=== PATIENT | male | born 1975 | race African-American/Black ===

== ENCOUNTER 2022-08-12 10:42 | Emergency (ER) | payer OTHER ==
[~2022-08-12] VITALS: Ht 170.2 cm; Wt 90.7 kg
[2022-08-12 10:50] VITALS: BP 138/90
[2022-08-12] MEDS ORDERED: cefTRIAXone SOD 1,000 MG VL IM ONE (11:15)
[2022-08-12] MEDS ORDERED: CEPH-510 PO (11:38)
== END 2022-08-12 11:49 | disposition home or self-care (01) ==
LOC: ER 10:44
DX: S61.431A Puncture wound without foreign body of right hand, initial encounter (principal); L08.9 Local infection of the skin and subcutaneous tissue, unspecified; Z79.2 Long term (current) use of antibiotics; W26.8XXA Contact with other sharp object(s), not elsewhere classified, initial encounter; Y93.89 Activity, other specified; Y92.89 Other specified places as the place of occurrence of the external cause; Y99.8 Other external cause status
CPT/HCPCS: 73120; 96372; 99283; J0696

== ENCOUNTER 2023-05-16 21:16 | Emergency (ER) | payer OTHER ==
[~2023-05-16] VITALS: Ht 180.3 cm; Wt 87.3 kg
[~2023-05-16 21:16] MED LIST: CEPH-510 PO
[2023-05-16 22:04] VITALS: BP 129/76; PULSE 98; RESP 17; TEMP 99.2
[2023-05-16 22:51] VITALS: O2SAT 98
[2023-05-16] MEDS ORDERED: CEPH500C PO (22:57)
[2023-05-16] MEDS ORDERED: ACET500T58 PO (22:57)
== END 2023-05-16 23:30 | disposition home or self-care (01) ==
LOC: ER 21:16
DX: S00.01XA Abrasion of scalp, initial encounter (principal); Z85.9 Personal history of malignant neoplasm, unspecified; Z98.890 Other specified postprocedural states; W22.8XXA Striking against or struck by other objects, initial encounter; Y93.89 Activity, other specified; Y92.89 Other specified places as the place of occurrence of the external cause; Y99.8 Other external cause status
CPT/HCPCS: 70450

== ENCOUNTER 2025-06-07 09:55 | Inpatient (IN) | payer OTHER, MEDICAID ==
[~2025-06-07] VITALS: Ht 180.3 cm; Wt 95.5 kg
[~2025-06-07 09:55] MED LIST changes: +ACET500T58 PO; +CEPH500C PO
--- NOTE | 2025-06-07 10:09 | ECG ---
[facility] Test Date: 2025-06-07 Test Time: 10:07:36 Pat Name: NATHALIE CAGLE Department: ED Room: Gender: Manager Convention: WILLIAM : 1975 Requested By: LASHANDA ACEVES Order Number: [id number] Reading MD: Rafael Tran Measurements Intervals [place] Rate: 86 P: 47 UT: 168 QRS: 35 QRSD: 87 T: 25 QT: 343 QTc: 411 Interpretive Statements Sinus rhythm Electronically Signed On 06-07-2025 10:33:39 PST by Rafael Tran Please click the below link to view image of tracing.
--- NOTE | 2025-06-07 10:17 | ED.PDOC ---
HPI (NEURO) HPI Comments 49 y/o M presents with c/c of right arm pain, numbness, and weakness. Patient endorses on symptom beginning with unprovoked and atraumatic onset of pain on 06/04/25. Patient states on pain getting progressively worse since then with additional onset of numbness and weakness over the course of duration. Additional associated symptoms of headache and 1x isolated episode of diarrhea, yesterday He denies any further associated symptoms, such as facial numbness or tingling. 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 Chief Complaint: Right Sided Weakness Time Seen by MD: 10:00 Primary Care Provider: [facility] Reviewed Notes: Nurses Notes, Medications, Allergies Information Source: Patient Mode of Arrival: Ambulatory Severity: Moderate Dizziness/Weakness Severity: Unable to do activities Headache Severity: Mild Timing: Days Duration: Since onset Prehospital treatment: Pain Meds Headache Quality: Other Headache Location: Generalized Weakness Location: (R) Arm Numbness Location: (R) Arm Onset: At rest Circumstances: Spontaneous Symptoms: Other (see HPI) History of: Other (see PMHx) Associated Signs and Symptoms: Other (see HPI) Past Medical History PAST MEDICAL HISTORY: Cancer (Giant cell tumor on pelvic bone) Past Medical History (Other): unspecified blood disorder Surgical History (Other): left wrist and right knee surgery Family History Family History: Family hx of DM (maternal), Family hx of Cancer (bone - paterna), Family hx of heart sydnie (paternal and maternal ) Social History Smoker: Non-Smoker Alcohol: Denies ETOH Use Drugs: Denies Drug Use Lives In: Home Constitutional: denies: chills, diaphoresis, fatigue, fever, malaise, sweats, weakness, others EENTM: denies: blurred vision, double vision, ear bleeding, ear discharge, ear drainage, ear pain, ear ringing, eye pain, eye redness, hearing loss, mouth pain, mouth swelling, nasal discharge, nose bleeding, nose congestion, nose pain, photophobia, tearing, throat pain, throat swelling, voice changes, others Respiratory: denies: cough, hemoptysis, orthopnea, SOB at rest, shortness of breath, SOB with excertion, stridor, wheezing, others Cardiovascular: denies: chest pain, dizzy spells, diaphoresis, Dyspnea on exertion, edema, irregular heart beat, left arm pain, lightheadedness, palpitations, PND, syncope, others Gastrointestinal: denies: abdomen distended, abdominal pain, blood streaked bowels, constipated, diarrhea, dysphagia, difficulty swallowing, hematemesis, melena, nausea, poor appetite, poor fluid intake, rectal bleeding, rectal pain, vomiting, others Genitourinary: denies: burning, dysuria, flank pain, frequency, hematuria, incontinence, penile discharge, penile sore, pain, testicle pain, testicle swelling, urgency, others Neurological: reports: headache, others (right arm pain, numbness, and weakness ); denies: dizziness, fainting, left sided numbness, left sided weakness, numbness, paresthesia, pre-existing deficit, right sided numbness, right sided weakness, seizure, speech problems, tingling, tremors, weakness Musculoskeletal: denies: back pain, gout, joint pain, joint swelling, muscle pain, muscle stiffness, neck pain, others Integumetry: denies: bruises, change in color, change in hair/nails, dryness, laceration, lesions, lumps, rash, wounds, others Allergic/Immunocompromised: denies: Difficulty Healing, Frequent Infections, Hives, Itching, others Hematologic/Lymphatic: denies: anemia, blood clots, easy bleeding, easy bruising, swollen glands, others Endocrine: denies: excessive hunger, excessive sweating, excessive thirst, excessive urination, flushing, intolerance to cold, intolerance to heat, unexplained weight gain, unexplained weight loss, others Psychiatric: denies: anxiety, bipolar disorder, depression, hopeless, panic disorder, schizophrenia, sleepless, suicidal, others All Other Systems: Reviewed and Negative Physical Exam General Appearance: Moderate Distress HEENT: Normal ENT Inspection, Pharynx Normal, TMs Normal Neck: Full Range of Motion, Non-Tender, Normal, Normal Inspection Respiratory: Chest Non-Tender, Lungs Clear, No Accessory Muscle Use, No Respiratory Distress, Normal Breath Sounds Cardiovascular: No Edema, No JVD, No Murmur, No Gallop, Normal Peripheral Pulses, Regular Rate/Rhythm Breast Exam: Deferred Gastrointestinal: No Organomegaly, Non Tender, No Pulsatile Mass, Normal Bowel Sounds, Soft Genitalia: Deferred Pelvic: Deferred Rectal: Deferred Extremities: No calf tenderness, Normal capillary refill, Normal inspection, Normal range of motion, Non-tender, No pedal edema Musculoskeletal : Apperance: Normal Neurologic: Alert, training systems officer II-XII nml as Tested, No Motor Deficits, Normal Affect, Normal Mood, No Sensory Deficits Cerebellar Function: Normal Reflexes: Normal Skin: Dry, Normal Color, Warm Lymphatic: No Adenopathy EKG EKG : Pulse Rate (adult): 86 [place]: Normal Cardiac Rhythm: NSR Block: None Hypertrophy: None ST: Normal Was a procedure done? Was a procedure done?: No Differential Diagnosis (SZ) Seizure: N/A General Weakness: Anemia, CVA, Dehydration, Dysrhythmia, Electrolyte imbalance, Hypoglycemia, Hypotension, Hypovolemia, Myocardial infarction, Pulmonary embolus, TIA Headache: Cluster, Migraine, CVA, Epidural Hemorrhage, Intracerebral Hemorrhage, Subarachnoid Hemorrhage, Subdural Hemorrhage X-Ray, Labs, Meds, VS Vital Signs Date Time Temp Pulse Resp B/P (MAP) Pulse Ox O2 Delivery O2 Flow Rate FiO2 06/07/25 11:29 98.9 84 18 125/91 (102) 98 98.9 06/07/25 11:29 84 18 98 Room Air 06/07/25 10:17 86 06/07/25 10:07 86 06/07/25 09:58 97.5 104 20 134/92 98 97.5 Lab Test 06/07/25 11:27 06/07/25 11:15 06/07/25 10:14 Range/Units Urine Color Yellow Yellow Urine Clarity Clear Clear Urine pH 6.0 5.0-9.0 Urine Specific [place] 1.028 1.001-1.035 Urine Protein Negative Negative Urine Ketones Negative Negative Urine Blood Negative Negative /uL Urine Nitrite Negative Negative Urine Bilirubin Negative Negative Urine Urobilinogen Normal Negative mg/dL Urine Leukocyte Esterase Negative Negative /uL Urine RBC 1 0 - 3 /hpf Urine Microscopic WBC < 1 0-3 /HPF Urine Squamous Epithelial Cells None seen <5 /hpf Urine Bacteria None seen None Seen /hpf Urine Glucose Normal Normal mg/dL Troponin I High Sensitivity Pending < 3 L </=54 ng/L White Blood Count 3.9 L 4.4-10.8 10^3/uL Red Blood Count 5.75 4.5-5.90 10^6/uL Hemoglobin 17.6 H 13.5-17.5 g/dL Hematocrit 50.8 41.0-53.0 % Mean Corpuscular Volume 88.4 80.0-100.0 fL Mean Corpuscular Hemoglobin 30.6 28.0-32.0 pg Mean Corpuscular Hemoglobin Concent 34.6 32.0-36.0 g/dL Red Cell Distribution Width 14.2 11.8-14.3 % Platelet Count 251 140-450 10^3/uL Mean Platelet Volume 7.0 6.9-10.8 fL Neutrophils (%) (Auto) 50.6 37.0-80.0 % Lymphocytes (%) (Auto) 32.3 10.0-50.0 % Monocytes (%) (Auto) 12.6 H 0.0-12.0 % Eosinophils (%) (Auto) 3.7 0.0-7.0 % Basophils (%) (Auto) 0.8 0.0-2.0 % Neutrophils # (Auto) 2.0 1.6-8.6 10 ^3/uL Lymphocytes # (Auto) 1.2 0.4-5.4 10 ^3/uL Monocytes # (Auto) 0.5 0-1.3 10 ^3/uL Eosinophils # (Auto) 0.1 0-0.8 10 ^3/uL Basophils # (Auto) 0 0-0.2 10 ^3/uL Nucleated Red Blood Cells 0.2 % Sodium Level 141 136-145 mmol/L Potassium Level 3.9 3.5-5.1 mmol/L Chloride Level 105 98-107 mmol/L Carbon Dioxide Level 28 20-31 mmol/L Anion Gap 8 5-15 Blood Urea Nitrogen 15 9-23 mg/dL Creatinine 1.31 H 0.700-1.30 mg/dL Glomerular Filtration Rate Calc 68 >90 mL/min BUN/Creatinine Ratio 11.5 10.0-20.0 Serum Glucose 94 74-106 mg/dL Calcium Level 9.5 8.7-10.4 mg/dL PROCEDURE(s): HWOCT - HEAD WITHOUT CONTRAST IMPRESSION: No acute intracranial abnormality. PROCEDURE(s): CXR2 - CHEST TWO VIEWS ROUTINE IMPRESSION: No acute cardiopulmonary disease. Time of 1ST Reevaluation: 10:45 Reevaluation 1ST: Unchanged Patient Education/Counseling: Diagnosis, Treatment, Prognosis Family Education/Counseling: No Family Present Departure 1 Departure Time of Disposition: 12:01 Impression: Primary Impression: Right-sided chest pain Additional Impression: Generalized weakness Disposition: 09 ADMITTED INPATIENT Admit to: Tele Condition: Fair Critical Care Note Critical Care Time?: Yes (45 min-critical care time only) Stability Stability form required: Yes Unstable for transfer: Telemetry monitoring (Telemetry monitoring required), ED Physician Assesment (Clinical assesment) Heart Score Heart Score: Heart Score Response (Comments) Value History N/A 0 EKG N/A 0 Age N/A 0 Risk Factors N/A 0 Troponin N/A 0 Total 0 I personally scribed for LASHANDA ACEVES MD ([email or web address]) on 06/07/25 at 10:17. Electronically submitted by Gal Randle ([email or web address]). I personally scribed for LASHANDA ACEVES MD ([email or web address]) on 06/07/25 at 10:18. Electronically submitted by Gal Randle ([email or web address]). I personally scribed for LASHANDA ACEVES MD ([email or web address]) on 06/07/25 at 11:58. Electronically submitted by Gal Randle ([email or web address]). LASHANDA ACEVES MD Jun 07, 2025 10:17
[2025-06-07 10:44] LABS: Mean Corpuscular Volume 88.4 fL (80.0-100.0)
[2025-06-07 10:48] LABS: Hematocrit 50.8 % (41.0-53.0); Hemoglobin 17.6 g/dL (13.5-17.5); Mean Corpuscular Hemoglobin 30.6 pg (28.0-32.0); Nucleated Red Blood Cells % 0.2 %
--- NOTE | 2025-06-07 10:48 | DVH ---
XY CHEST TWO VIEWS ROUTINE CLINICAL HISTORY: RIGHT ARM PAIN COMPARISON: None TECHNIQUE: Frontal and lateral view of the chest was obtained FINDINGS: Lines and Tubes: None Lungs: No focal consolidation. Pleura: No effusion. No pneumothorax. Cardiomediastinal contours: Unremarkable Bones: No acute osseous abnormality. IMPRESSION: No acute cardiopulmonary disease.
--- NOTE | 2025-06-07 10:51 | DVH ---
EXAM: CT HEAD WITHOUT CONTRAST INDICATION: still TECHNIQUE: CT of the head without intravenous contrast. Radiation Dose Information: CT Dose: CTDI volume is 61.94 mGy. Dose-length product is 1220.5 mGy*cm The dose indicators for CT are the volume Computed Tomography (CT) Dose Index (CTDIvol) and the Dose Length Product (DLP), and are measured in units of mGy and mGy-cm, respectively. These indicators are not patient dose, but values generated from the CT scanner acquisition factors. The report includes radiation exposure data for exposures received during this examination. COMPARISON: CT HEAD WITHOUT CONTRAST on DOS: 05/16/23 FINDINGS: There is no evidence of acute intracranial hemorrhage, extra-axial collection, mass effect, midline shift, herniation or hydrocephalus. The ventricles, sulci and cisterns are age appropriate. The tolentino-white differentiation is intact. Patchy periventricular and subcortical white matter hypoattenuation is nonspecific but may be related to small vessel ischemic disease. The visualized paranasal sinuses and mastoid air cells are clear. The surrounding soft tissues and osseous structures are unremarkable. IMPRESSION: No acute intracranial abnormality.
[2025-06-07 10:54] LABS: Chloride 105 mmol/L (98-107); Potassium 3.9 mmol/L (3.5-5.1); Sodium 141 mmol/L (136-145)
[2025-06-07 10:55] LABS: Anion Gap 8 (5-15); Carbon Dioxide 28 mmol/L (20-31)
[2025-06-07 10:56] LABS: Calcium 9.5 mg/dL (8.7-10.4)
[2025-06-07 11:00] LABS: Glucose 94 mg/dL (74-106)
[2025-06-07 11:01] LABS: BUN/Creatinine Ratio 11.5 (10.0-20.0); Blood Urea Nitrogen 15 mg/dL (9-23)
[2025-06-07 11:51] LABS: Urine Protein, UAD Negative (Negative)
--- NOTE | 2025-06-07 12:31 | DVHHPRES ---
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 presented to the ED with a chief complaint of severe right upper arm pain for the last 3 days. The patient reports the pain started on Tuesday, gradually progressive to severe 10/10 on intensity which was not relieved on taking baclofen, gabapentin, Nucynta, heart radiation down to follow up of the head up to his shoulder, tenderness on pressure around the biceps and triceps, denied any history of trauma or lifting heavy weights for which to come to the hospital for further evaluation. He also complaint of mild headache on the right side following which in the ED, CT head without contrast was done which did not show any acute intracranial abnormality. The pa tient denied any fever, chills, rash or any overt swelling around the pain area in the last 2 days. Medical history: As per HPI Surgical history: Denies Social history: Denies any smoking, alcohol, drug use Family history: Bone cancer and CHF in father, CHF and diabetes and mother Home medications: Denosumab once monthly, gabapentin, baclofen, Nucynta for pain Review of Systems Review of Systems Patient complaint of extreme pain 9-10/10 on intensity in the middle of right upper arm with intermittent radiation down to the head Reports headache has improved Denies shortness of breath, chest pain Allergies: Coded Allergies: NO KNOWN ALLERGIES (Unverified , 05/16/23) Medications Current Medications Medications Dose Ordered Sig/Sanya Route Start Time Stop Time Status Last Admin Dose Admin Morphine Sulfate 2 mg Q4HPRN PRN IV 06/07/25 12:15 UNV Ondansetron HCl 4 mg Q6HPRN PRN IV 06/07/25 12:15 UNV Exam Vital Signs Vital Signs Date Time Temp Pulse Resp B/P (MAP) Pulse Ox O2 Delivery O2 Flow Rate FiO2 06/07/25 11:29 98.9 84 18 125/91 (102) 98 98.9 06/07/25 11:29 Room Air Exam Skin - Patients skin is warm and dry, no rashes, no swelling around the right upper arm HEENT - normocephalic, atraumatic, moist mucous membranes, no icterus, no pallor, bilateral pupils equal and reactive Neck - full ROM, no LAD, no JVD Pulmonary - B/L clear with sounds, no wheezes or rales cardiovascular - regular S1,S2 heard, no added sounds, no murmurs heard. peripheral pulses normal radial 2+, pedal 2+. GI - soft, nontender abdomen. Bowel sounds normoactive Neurological - Patient is A/O X 4 . Right upper extremity strength 4/5, left upper extremity strength 5/5, bilateral lower extremity strength 5/5, no sensory abnormalities bilaterally in the upper extremities or the lower extremities, no visual abnormalities Labs/Xrays Labs Test 06/07/25 11:27 06/07/25 11:15 06/07/25 10:14 Range/Units Urine Color Yellow Yellow Urine Clarity Clear Clear Urine pH 6.0 5.0-9.0 Urine Specific [place] 1.028 1.001-1.035 Urine Protein Negative Negative Urine Ketones Negative Negative Urine Blood Negative Negative /uL Urine Nitrite Negative Negative Urine Bilirubin Negative Negative Urine Urobilinogen Normal Negative mg/dL Urine Leukocyte Esterase Negative Negative /uL Urine RBC 1 0 - 3 /hpf Urine Microscopic WBC < 1 0-3 /HPF Urine Squamous Epithelial Cells None seen <5 /hpf Urine Bacteria None seen None Seen /hpf Urine Glucose Normal Normal mg/dL Troponin I High Sensitivity < 3 L </=54 ng/L White Blood Count 3.9 L 4.4-10.8 10^3/uL Red Blood Count 5.75 4.5-5.90 10^6/uL Hemoglobin 17.6 H 13.5-17.5 g/dL Hematocrit 50.8 41.0-53.0 % Mean Corpuscular Volume 88.4 80.0-100.0 fL Mean Corpuscular Hemoglobin 30.6 28.0-32.0 pg Mean Corpuscular Hemoglobin Concent 34.6 32.0-36.0 g/dL Red Cell Distribution Width 14.2 11.8-14.3 % Platelet Count 251 140-450 10^3/uL Mean Platelet Volume 7.0 6.9-10.8 fL Neutrophils (%) (Auto) 50.6 37.0-80.0 % Lymphocytes (%) (Auto) 32.3 10.0-50.0 % Monocytes (%) (Auto) 12.6 H 0.0-12.0 % Eosinophils (%) (Auto) 3.7 0.0-7.0 % Basophils (%) (Auto) 0.8 0.0-2.0 % Neutrophils # (Auto) 2.0 1.6-8.6 10 ^3/uL Lymphocytes # (Auto) 1.2 0.4-5.4 10 ^3/uL Monocytes # (Auto) 0.5 0-1.3 10 ^3/uL Eosinophils # (Auto) 0.1 0-0.8 10 ^3/uL Basophils # (Auto) 0 0-0.2 10 ^3/uL Nucleated Red Blood Cells 0.2 % Sodium Level 141 136-145 mmol/L Potassium Level 3.9 3.5-5.1 mmol/L Chloride Level 105 98-107 mmol/L Carbon Dioxide Level 28 20-31 mmol/L Anion Gap 8 5-15 Blood Urea Nitrogen 15 9-23 mg/dL Creatinine 1.31 H 0.700-1.30 mg/dL Glomerular Filtration Rate Calc 68 >90 mL/min BUN/Creatinine Ratio 11.5 10.0-20.0 Serum Glucose 94 74-106 mg/dL Calcium Level 9.5 8.7-10.4 mg/dL SEPSIS Sepsis Screen Date sepsis recognized/suspect: Jun 07, 2025 Time Sepsis recognized/suspect: 1000 Recent Procedure: No On Antibiotic Therapy: No Respiratory Rate >20: No Heart Rate >90: Yes Temp<36 C (96.8 F) or >38.3 C: No SBP <90 or MAP <65 mmHG: No New Acute Mental Status Change: No Is the patient on CPAP, BIPAP,: No Physician Orders Chest Two Views Routine (06/07/25 10:06) Heplock Iv (06/07/25 10:06) Electrocardigram (06/07/25 10:06) Head Without Contrast (06/07/25 10:06) Troponin-I Hs (06/07/25 13:06) Electrocardigram (06/07/25 11:06) Electrocardigram (06/07/25 13:06) Admit (06/07/25 12:08) Oxygen By Nasal Cannula (06/07/25 12:08) Stat Ekg For Chest Pain (06/07/25 12:08) Notify Of Changes From Base (06/07/25 12:08) Morphine Sulfate Injection (06/07/25 12:15) Morphine Sulfate Injection (06/07/25 12:15) Sodium Chloride 0.9% (06/07/25 12:15) Ct Right Humerus W Contrast (06/07/25 13:30) Ondansetron Hcl (Zofran) (06/07/25 12:15) Erythrocyte Sedimentation Rate (06/07/25 12:08) Hepatic Panel (06/07/25 12:08) Vital Signs Date Time Temp Pulse Resp B/P (MAP) Pulse Ox O2 Delivery O2 Flow Rate FiO2 06/07/25 11: 98.9 84 18 125/91 (102) 98 98.9 06/07/25 11:29 84 18 98 Room Air 06/07/25 10:17 86 06/07/25 10:07 86 06/07/25 09:58 97.5 104 20 134/92 98 97.5 Laboratory Tests Test 06/07/25 10:14 White Blood Count 3.9 10^3/uL (4.4-10.8) L Assessment/Plan Assessment/Plan Intractable right upper extremity pain ?Metastatic lesion to the bone H/o giant cell tumor JOSE MIGUEL on CKD likely due to VMN - CT with IV contrast - IV pain medications, patient denied relief with the oral medications at home - Zofran for nausea - IV fluids PUD prophylaxis: Protonix DVT prophylaxis: Enoxaparin Goals of care discussed with the patient for over 19 minutes. Full code Time spent: 34 minutes Plan discussed with Dr. Morelos Plan discussed with: Patient My Orders Orders - BEN VÁSQUEZ RESIDENT Procedure Category Date Status Time Admit ADMIT 06/07/25 Transmitted 12:08 Oxygen By Nasal RT 06/07/25 Transmitted Cannula 12:08 Stat Ekg For Chest BREA 06/07/25 In Process Pain 12:08 Notify Of Changes BREA 06/07/25 In Process From Base 12:08 Morphine Sulfate PHA 06/07/25 Logged Injection 12:15 Morphine Sulfate PHA 06/07/25 Logged Injection 12:15 Sodium Chloride 0.9% PHA 06/07/25 Logged 12:15 Ct Right Humerus W CT 06/07/25 Transmitted Contrast 13:30 Ondansetron Hcl PHA 06/07/25 Logged (Zofran) 12:15 Erythrocyte LAB 06/07/25 Logged Sedimentation Rate 12:08 Hepatic Panel LAB 06/07/25 Logged 12:08 Date of Service: Jun 07, 2025 Billing Provider: RONAK MORELOS MD Common Visit Codes: 27716-[id number] INP/OBS CARE (HIGH) Secondary Visit Codes: [id number] CARE PLAN 30 MINUTES BEN VÁSQUEZ RESIDENT Jun 07, 2025 12:31
[2025-06-07 12:55] LABS: Alanine Aminotransferase 38.0 U/L (7-40); Albumin 4.3 g/dL (3.2-4.8); Alkaline Phosphatase 58.0 U/L (46-116); Bilirubin, Direct 0.3 mg/dL (<0.3); Bilirubin, Total 1.2 mg/dL (0.2-1.0); Total Protein 7.0 g/dL (5.7-8.2)
[2025-06-07] MEDS: ONDANSETRON HCL 4 MG/2 ML VIAL IV PRN (12:57)
[2025-06-07] MEDS: MORPHINE SULFATE INJ 2 MG/ml SYRG IV ONE (13:03)
[2025-06-07] MEDS: SODIUM CHLORIDE 0.9% 500 ML IV ONE (13:10)
--- NOTE | 2025-06-07 13:25 | DVH ---
CLINICAL INFORMATION: Pain in right arm. History of giant cell tumor in the pelvis. TECHNIQUE: Axial CT images of the right humerus were obtained after the administration of 80 mL omnipaque 300 IV contrast. Coronal and sagittal reformatted images were obtained, reviewed, and stored. All CT scans at this medical facility are performed using dose modulation techniques as appropriate to a performed exam including the following: Automated exposure control was utilized; adjustment of the MA and/or KV according to patient size; and use of iterative reconstruction technique. CTDIvol = 32.77 mGy DLP = 1554.53 mGy-cm COMPARISON: None. FINDINGS: No acute fracture. No suspicious intraosseous lesion. No significant soft tissue abnormality visualized on CT. No suspicious abnormal postcontrast enhancement. Visualized musculature Appears grossly unremarkable with no fatty atrophy. No soft tissue fluid collection or mass identified. IMPRESSION: 1. No evidence of acute bony abnormality. 2. No suspicious intraosseous lesion. 3. No acute or suspicious soft tissue abnormality identified. Correlate with clinical Findings. If clinical symptoms persist, MRI could be considered.
[2025-06-07 14:32] VITALS: BP 135/91; PULSE 71; RESP 16; TEMP 97.9; O2SAT 96
[2025-06-07 14:52] VITALS: BP 135/91; PULSE 71; RESP 16; TEMP 97.9; O2SAT 96
[2025-06-07] MEDS ORDERED: BACL10TA PO (15:27)
[2025-06-07] MEDS ORDERED: GABA-339 PO (15:27)
[2025-06-07] MEDS ORDERED: TAPE100T24 PO (15:27)
[2025-06-07] MEDS ORDERED: ACET500T58 PO (15:27)
[2025-06-07 16:38] VITALS: BP 119/78; PULSE 72; RESP 16; TEMP 98.2; O2SAT 96
[2025-06-07] MEDS: PANTOPRAZOLE 40 MG TAB PO ONE (18:14)
[2025-06-07] MEDS: ENOXAPARIN SOD 40 MG/0.4 ML SYRINGE SC ONE (18:15)
[2025-06-07] MEDS: MORPHINE SULFATE INJ 2 MG/ml SYRG IV PRN (18:16)
[2025-06-07 20:00] VITALS: PULSE 79; RESP 17; O2SAT 95
[2025-06-07 21:00] VITALS: BP 102/61; PULSE 79; RESP 17; TEMP 98.2; O2SAT 95
[2025-06-07] MEDS: MORPHINE SULFATE INJ 2 MG/ml SYRG ONE (23:40)
[2025-06-08] VITALS (8 sets, daily range): BP systolic 103–129; BP diastolic 74–94; PULSE 67–101; RESP 16–18; TEMP 97.5–98.7; O2SAT 95–97
[2025-06-08] MEDS: PANTOPRAZOLE 40 MG TAB PO ONE (05:59)
[2025-06-08] MEDS: PANTOPRAZOLE 40 MG TAB PO SCH (06:01)
[2025-06-08 07:12] LABS: Hematocrit 50.8 % (41.0-53.0); Hemoglobin 17.4 g/dL (13.5-17.5); Mean Corpuscular Hemoglobin 30.7 pg (28.0-32.0); Mean Corpuscular Volume 89.4 fL (80.0-100.0); Nucleated Red Blood Cells % 0.2 %
[2025-06-08 07:29] LABS: Calcium 9.6 mg/dL (8.7-10.4); Chloride 104 mmol/L (98-107); Potassium 4.2 mmol/L (3.5-5.1); Sodium 142 mmol/L (136-145)
[2025-06-08 07:30] LABS: Anion Gap 8 (5-15); Carbon Dioxide 30 mmol/L (20-31)
[2025-06-08 07:36] LABS: BUN/Creatinine Ratio 11.4 (10.0-20.0); Blood Urea Nitrogen 14 mg/dL (9-23); Glucose 85 mg/dL (74-106)
[2025-06-08] MEDS: ENOXAPARIN SOD 40 MG/0.4 ML SYRINGE SC SCH (10:00)
--- NOTE | 2025-06-08 15:59 | DVHPN2 ---
Subjective I am assuming the care of the patient from today onwards patient is here for right upper extremity worsening pain for last three days. Patient's has a known diagnosis of giant cell tumor of the left pelvis currently on injection chemotherapy once a month. 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 Medications Current Medications Medications Dose Ordered Sig/Sanya Route Start Time Stop Time Status Last Admin Dose Admin Ondansetron HCl 4 mg Q6HPRN PRN IV 06/07/25 12:15 06/07/25 12:57 4 MG Pantoprazole Sodium 40 mg DAILY@0600 PO 06/08/25 06:00 06/08/25 06:01 40 MG Enoxaparin Sodium 40 mg DAILY SC 06/08/25 10:00 Morphine Sulfate 2 mg Q3HPRN PRN IV 06/08/25 14:15 Laboratory Results Laboratory Tests 06/08/25 05:20 Chemistry Test 06/08/25 05:20 Calcium Level 9.6 mg/dL (8.7-10.4) Urinalysis Test 06/07/25 11:27 Urine Color Yellow (Yellow) Urine Clarity Clear (Clear) Urine pH 6.0 (5.0-9.0) Urine Specific [place] 1.028 (1.001-1.035) Urine Protein Negative (Negative) Urine Ketones Negative (Negative) Urine Blood Negative /uL (Negative) Urine Nitrite Negative (Negative) Urine Bilirubin Negative (Negative) Urine Urobilinogen Normal mg/dL (Negative) Urine Leukocyte Esterase Negative /uL (Negative) Urine RBC 1 /hpf (0 - 3) Urine Microscopic WBC < 1 /HPF (0-3) Urine Squamous Epithelial Cells None seen /hpf (<5) Urine Bacteria None seen /hpf (None Seen) Urine Glucose Normal mg/dL (Normal) Assessment/Plan Assessment/Plan 49-year-old male with a 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 Intractable right upper extremity pain ruled out any metastasis 2. Acute kidney injury suspected secondary to vasomotor nephropathy 3. 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 Plan discussed with: Patient My Orders Orders - KALEY DEL TORO MD Procedure Category Date Status Time Morphine Sulfate PHA 06/08/25 In Process Injection 14:15 Nm Bone 3 Phase NM 06/08/25 Logged 14:09 Problem List: (1) Generalized weakness Date of Service: Jun 08, 2025 Billing Provider: KALEY DEL TORO MD Common Visit Codes: [id number] INP/OBS CARE(HIGH) KALEY DEL TORO MD Jun 08, 2025 15:59
[2025-06-08] MEDS: MORPHINE SULFATE INJ 2 MG/ml SYRG IV PRN (17:44)
[2025-06-09] VITALS (8 sets, daily range): BP systolic 108–132; BP diastolic 74–94; PULSE 69–81; RESP 16–18; TEMP 97.5–99.9; O2SAT 94–97
[2025-06-09] MEDS: HYDROcodone-ACET 10/325MG TAB ONE (14:24)
[2025-06-09] MEDS: HYDROcodone-ACET 10/325MG TAB PO PRN (14:26)
--- NOTE | 2025-06-09 15:54 | DVHPN2 ---
Subjective Patient has stated that pain is not controlled. 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 Medications Current Medications Medications Dose Ordered Sig/Sanya Route Start Time Stop Time Status Last Admin Dose Admin Pantoprazole Sodium 40 mg DAILY@0600 PO 06/08/25 06:00 06/09/25 06:14 40 MG Enoxaparin Sodium 40 mg DAILY SC 06/08/25 10:00 06/09/25 08:59 40 MG Morphine Sulfate 2 mg Q3HPRN PRN IV 06/08/25 14:15 06/09/25 09:01 2 MG Acetaminophen/ Hydrocodone Bitart 1 tab Q4HP PRN PO 06/09/25 14:15 06/09/25 14:26 1 TAB Ondansetron HCl 4 mg Q6HP PRN PO 06/09/25 15:00 Laboratory Results Laboratory Tests 06/08/25 05:20 Urinalysis Test 06/07/25 11:27 Urine Color Yellow (Yellow) Urine Clarity Clear (Clear) Urine pH 6.0 (5.0-9.0) Urine Specific [place] 1.028 (1.001-1.035) Urine Protein Negative (Negative) Urine Ketones Negative (Negative) Urine Blood Negative /uL (Negative) Urine Nitrite Negative (Negative) Urine Bilirubin Negative (Negative) Urine Urobilinogen Normal mg/dL (Negative) Urine Leukocyte Esterase Negative /uL (Negative) Urine RBC 1 /hpf (0 - 3) Urine Microscopic WBC < 1 /HPF (0-3) Urine Squamous Epithelial Cells None seen /hpf (<5) Urine Bacteria None seen /hpf (None Seen) Urine Glucose Normal mg/dL (Normal) Assessment/Plan Assessment/Plan 49-year-old male with a 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 Intractable right upper extremity pain ruled out any metastasis 2. Acute kidney injury suspected secondary to vasomotor nephropathy 3. 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 Plan discussed with: Patient My Orders Orders - KALEY DEL TORO MD Procedure Category Date Status Time Hydrocodone-Acet PHA 06/09/25 In Process 10/325mg Tab ([place] 14:15 Ondansetron Po PHA 06/09/25 In Process (Zofran Po) 15:00 Date of Service: Jun 09, 2025 Billing Provider: KALEY DEL TORO MD Common Visit Codes: [id number] INP/OBS CARE(HIGH) KALEY DEL TORO MD Jun 09, 2025 15:54
[2025-06-10 01:00] VITALS: BP 121/69; PULSE 77; RESP 17; TEMP 98.6; O2SAT 97
[2025-06-10 05:00] VITALS: BP 105/62; PULSE 69; RESP 17; TEMP 98; O2SAT 98
[2025-06-10 08:00] VITALS: PULSE 77; RESP 17; O2SAT 97
[2025-06-10 09:00] VITALS: BP 126/82; PULSE 69; RESP 14; TEMP 98.2; O2SAT 97
[2025-06-10] MEDS: ONDANSETRON ODT 4 MG TAB PO PRN (12:07)
[2025-06-10 12:38] VITALS: BP 152/108; PULSE 82; RESP 16; TEMP 97.2; O2SAT 97
--- NOTE | 2025-06-10 14:27 | DVH ---
Procedure: NM BONE WHOLE BODY Exam Date: 06/10/2025 01:29 PM Reason for study/Clinical History: Rule Out Bony Mass due to history of cancer Comparison Study: None Nuclear Medicine Whole Body Bone Scan Technique: Following the intravenous administration of 26 millicuries of technetium 99m labeled MDP, whole body images in the anterior and posterior projections were obtained 3 hours following the administration of radiopharmaceutical. Additional delayed camera views of the right humerus were also obtained. Findings: There is mild symmetric multifocal activity overlying both shoulders consistent with mild degenerative change. The expected mild activity is noted overlying both kidneys and the bladder without evidence of obstruction. There is increased radiopaque uptake involving the left iliac wing, MRI of the left iliac wing is recommended. Impression: There is increased radiopaque uptake involving the left iliac wing, MRI of the left iliac wing is recommended.
--- NOTE | 2025-06-10 16:11 | DVHDS2 ---
Discharge Summary Date of Admission Jun 07, 2025 at 12:08 Date of Discharge: Jun 10, 2025 Labs/Diagnostic Data: Laboratory Results Test 06/08/25 05:20 06/07/25 11:27 06/07/25 11:15 06/07/25 10:14 White Blood Count 3.7 10^3/uL (4.4-10.8) Red Blood Count 5.68 10^6/uL (4.5-5.90) Hemoglobin 17.4 g/dL (13.5-17.5) Hematocrit 50.8 % (41.0-53.0) Mean Corpuscular Volume 89.4 fL (80.0-100.0) Mean Corpuscular Hemoglobin 30.7 pg (28.0-32.0) Mean Corpuscular Hemoglobin Concent 34.3 g/dL (32.0-36.0) Red Cell Distribution Width 14.2 % (11.8-14.3) Platelet Count 241 10^3/uL (140-450) Mean Platelet Volume 7.0 fL (6.9-10.8) Neutrophils (%) (Auto) 45.1 % (37.0-80.0) Lymphocytes (%) (Auto) 36.6 % (10.0-50.0) Monocytes (%) (Auto) 11.8 % (0.0-12.0) Eosinophils (%) (Auto) 5.6 % (0.0-7.0) Basophils (%) (Auto) 0.9 % (0.0-2.0) Neutrophils # (Auto) 1.7 10 ^3/uL (1.6-8.6) Lymphocytes # (Auto) 1.4 10 ^3/uL (0.4-5.4) Monocytes # (Auto) 0.4 10 ^3/uL (0-1.3) Eosinophils # (Auto) 0.2 10 ^3/uL (0-0.8) Basophils # (Auto) 0 10 ^3/uL (0-0.2) Nucleated Red Blood Cells 0.2 % Sodium Level 142 mmol/L (136-145) Potassium Level 4.2 mmol/L (3.5-5.1) Chloride Level 104 mmol/L (98-107) Carbon Dioxide Level 30 mmol/L (20-31) Anion Gap 8 (5-15) Blood Urea Nitrogen 14 mg/dL (9-23) Creatinine 1.23 mg/dL (0.700-1.30) Glomerular Filtration Rate Calc 73 mL/min (>90) BUN/Creatinine Ratio 11.4 (10.0-20.0) Serum Glucose 85 mg/dL (74-106) Calcium Level 9.6 mg/dL (8.7-10.4) Urine Color Yellow (Yellow) Urine Clarity Clear (Clear) Urine pH 6.0 (5.0-9.0) Urine Specific [place] 1.028 (1.001-1.035) Urine Protein Negative (Negative) Urine Ketones Negative (Negative) Urine Blood Negative /uL (Negative) Urine Nitrite Negative (Negative) Urine Bilirubin Negative (Negative) Urine Urobilinogen Normal mg/dL (Negative) Urine Leukocyte Esterase Negative /uL (Negative) Urine RBC 1 /hpf (0 - 3) Urine Microscopic WBC < 1 /HPF (0-3) Urine Squamous Epithelial Cells None seen /hpf (<5) Urine Bacteria None seen /hpf (None Seen) Urine Glucose Normal mg/dL (Normal) Total Bilirubin 1.2 mg/dL (0.2-1.0) Direct Bilirubin 0.3 mg/dL (<0.3) Aspartate Amino Transferase (AST) 29 U/L (13-40) Alanine Aminotransferase (ALT) 38 U/L (7-40) Alkaline Phosphatase 58 U/L (46-116) Troponin I High Sensitivity < 3 ng/L (</=54) Total Protein 7.0 g/dL (5.7-8.2) Albumin 4.3 g/dL (3.2-4.8) Erythrocyte Sedimentation Rate 2 mm/hr (0-20) Other Laboratory Tests 06/08/25 05:20 Brief Hx & Hospital Course: 49-year-old male with a 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 Patient underwent bone scan which shows no evidence of any bony mass in the right upper extremity. 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 Patient will be discharged under stable condition with the p.o. pain meds as needed. Patient was recommended to follow up with the your own PCP and Oncology upon discharge. 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 Intractable right upper extremity pain ruled out any metastasis 2. Acute kidney injury suspected secondary to vasomotor nephropathy 3. 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 Continued Medications: Acetaminophen (Acetaminophen) 500 Mg Tab 1000 MG PO, TAB Baclofen (Baclofen) 10 Mg Tab 10 MG PO BID for 30 Days, MG Gabapentin (Gabapentin) 600 Mg Tab 600 MG PO BID for 30 Days, MG Tapentadol Hcl (Nucynta Er) 100 Mg Tab 100 MG PO DAILY PRN for BREAKTHROUGH PAIN, TAB Scheduled Baclofen (Baclofen), 10 MG PO BID, (Reported) Gabapentin (Gabapentin), 600 MG PO BID, (Reported) Scheduled PRN Tapentadol Hcl (Nucynta Er), 100 MG PO DAILY PRN for BREAKTHROUGH PAIN, (Reported) Miscellaneous Medications Acetaminophen (Acetaminophen), 1,000 MG PO, (Reported) Discharge Statement: "Patient was advised to return to the ER or call 911 if any headaches, dizziness, shortness of breath, chest pain, abdominal pain, bleeding, fevers, or worsening of medical condition. Patient was counseled about treatment plan, medications, possible side effects, patientverbalized understanding. All questions were answered to the best of my ability. 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 Intractable right upper extremity pain ruled out any metastasis 2. Acute kidney injury suspected secondary to vasomotor nephropathy 3. 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
[2025-06-10 16:44] VITALS: BP 134/96; PULSE 95; RESP 14; TEMP 98.6; O2SAT 98
== END 2025-06-10 17:31 | disposition home or self-care (01) | DRG 555 ==
LOC: ER 09:58 → OVERFLOW 12:08 → WEST WING 14:29
PROVIDERS: ADMIT Internal Medicine; ATTEND Internal Medicine
DX: M79.601 Pain in right arm (principal); N17.0 Acute kidney failure with tubular necrosis; C41.4 Malignant neoplasm of pelvic bones, sacrum and coccyx; N18.9 Chronic kidney disease, unspecified; D48.7 Neoplasm of uncertain behavior of other specified sites; R07.89 Other chest pain; Z83.3 Family history of diabetes mellitus; Z82.49 Family history of ischemic heart disease and other diseases of the circulatory system
CPT/HCPCS: 36415; 70450; 71046; 73201; 78306; 80048; 80076; 81001; 84484; 85025; 85652; 93005; 99291; G0378; Q0162